=== PATIENT | male | born 1975 | race Hispanic/Latino ===

== ENCOUNTER 2019-10-29 08:14 | Emergency (ER) | payer OTHER, SELFPAY ==
--- NOTE | 2019-10-29 08:20 | ED.LOWEXIN ---
HPI - Extremity Injury (Lower) General Chief Complaint: Back Pain/Injury Stated Complaint: Pain cyatic nerve Time Seen by Provider: 10/29/19 08:20 Source: patient and RN notes reviewed History of Present Illness HPI Narrative: Patient is a 44-year-old male who presents the urgent care with complaints of left-sided sciatica with pains from the left flank around to the left thigh. Patient states is been going on for months and he has been following up with his primary doctor. Patient states that he completed physical therapy this week and he has been limping with worsening pain for the last 2 weeks. Patient states he has been waiting on an MRI which is post to be scheduled the first of next month. Patient did call his doctor this morning for a Zoom confrontation and he states that nothing would have been done over [place] and therefore he came to our facility for treatment. Patient states that he was prescribed tramadol for the pain but has not taken any for the last 24 hours. Patient states he took ibuprofen prior to bedtime last night with minimal relief. Patient is using a makeshift cane to ambulate. No other acute complaints. Denies any injury to cause the sciatica pains. Patient aware of the plan of care. Related Data Home Medications Medication Instructions Recorded Confirmed lisinopril 10/29/19 metformin mg 10/29/19 tramadol mg 10/29/19 Allergies Allergy/AdvReac Type Severity Reaction Status Date / Time No Known Allergies Allergy Unverified 03/31/18 10:03 Review of Systems Review of Systems: Narrative: CONSTITUTIONAL: Denies fever, chills, or sweats. EYES: Denies visual changes, redness, or discharge. ENT: Denies rhinorrhea, congestion, sore throat, or otalgia. CARDIOVASCULAR: Denies chest pain, palpitations, or edema. RESPIRATORY: Denies cough or dyspnea. GASTROINTESTINAL: Denies abdominal pain, nausea, vomiting, or diarrhea. GENITOURINARY: Denies dysuria or hematuria. SKIN: Denies rash or itching. MUSCULOSKELETAL: Reports of left-sided low back, buttocks and radiation through the thigh pains NEUROLOGIC: Denies headache, numbness, or weakness. All other systems reviewed are negative, except as documented in HPI. PMFSH Comments At the time of my signature, I reviewed and agree with the nursing past medical, surgical, social, and family history. There is no relevant family history pertinent to the patient complaint. Exam Narrative: Exam Narrative: GENERAL: This is a well-nourished, well-developed patient, in no apparent distress. HEAD: normocephalic, atraumatic. EYES: PERRL. Sclera clear/white. Vision is grossly intact. EARS: External ears normal NOSE: External nose normal with no obvious nasal discharge, nares without redness, no rhinorrhea. THROAT: Mucous membranes moist NECK: Neck supple SKIN: warm, intact with no suspicious lesions or rash, good texture and turgor. NEURO: awake, alert, and oriented to person, place and time. There were no obvious focal neurologic abnormalities. EXTREMITIES: No clubbing, cyanosis, or edema. BACK: Left lumbar tenderness. Moderate to severe piriformis tenderness on the left. Positive left SLE Course Vital Signs Vital signs: Vital Signs Temperature 99.0 F 10/29/19 08:24 Pulse Rate 80 10/29/19 08:24 Respiratory Rate 20 10/29/19 08:24 Blood Pressure 147/95 H 10/29/19 08:24 Pulse Oximetry 94 10/29/19 08:24 Temperature 99.0 F 10/29/19 08:24 Pulse Rate 80 10/29/19 08:24 Respiratory Rate 20 10/29/19 08:24 Blood Pressure 147/95 H 10/29/19 08:24 Pulse Oximetry 94 10/29/19 08:24 Reviewed-patient is informed that they may have pre-hypertension or hypertension based on a blood pressure reading in the department. I recommend the patient call the primary care provider listed on their discharge instructions or a physician of their choice this week to arrange follow-up for further evaluation of possible pre-hypertension or hypertension. MDM -
[2019-10-29 08:24] VITALS: BP 147/95; PULSE 80; RESP 20; TEMP 37.2; O2SAT 94
== END 2019-10-29 09:05 | disposition home or self-care (01) ==
PROVIDERS: Emergency Provider Nurse Practitioner Family
DX: M54.32 Sciatica, left side (principal); I10 Essential (primary) hypertension; E11.9 Type 2 diabetes mellitus without complications
CPT/HCPCS: 99213; G0463

== ENCOUNTER 2022-06-27 00:53 | Day surgery (SDC) | payer BC, SELFPAY ==
--- NOTE | 2022-06-20 14:56 | PM.IMHP ---
H&P: HPI History of Present Illness Date/Time: 06/20/22 14:56 Chief Complaint: the patient is a 47-year-old male who sees Dr. Sosa regarding his right shoulder. The patient has a chronic ongoing history of pain localized to the right shoulder. This started with moving heavy gate since that time he has had pain and weakness that radiates into the upper arm he has trouble going about his daily activities he cannot do anything heavy repetitive he has limitation of his ability to go about his daily activities. Despite conservative measures including cortisone therapy and anti-inflammatories symptoms continue. An MRI scan was done which clearly shows a fairly significant rotator cuff tendon tear. 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 There was a full-thickness tear the anterior lateral supraspinatus tendon with a gap measuring 10 x 15 mm. There is mild tendinosis of the infraspinatus tendon and of the superior lateral subscapularis teres minor appears to be normal. At this point the patient is where the above findings and discuss further treatment options in detail with Dr. Sosa he would now like to proceed with surgical intervention. The patient MRI scan also shows probable absence of the long head of the biceps tendon which may be indicating a tear of the biceps tendon proximally also. Review of Systems Review of Systems: Ten point review of systems otherwise negative Meds Home Medications and Allergies Home Medications Medication Instructions Recorded Confirmed Type cyclobenzaprine 5 mg tablet 5 mg PO HS PRN muscle spasm #14 10/29/19 Rx tabs lisinopril 20 mg tablet 10/29/19 History metformin 500 mg tablet mg 10/29/19 History prednisone 10 mg tablet See Rx Instructions .Route 10/29/19 Rx .COMPLEX #30 tabs tramadol 50 mg tablet mg 10/29/19 History Allergies Allergy/AdvReac Type Severity Reaction Status Date / Time No Known Allergies Allergy Unverified 03/31/18 10:03 Exam Narrative: on exam the patient is noted be a well-developed well-nourished male in no acute distress alert oriented x3. Normal mood and affect. He has noted be 5 ft 6 in tall 195 lb BMI 31.5. Hearing and vision are intact. Respiratory is good no distress. Pulse regular rate and rhythm. Abdomen benign. Extremities showed the patient's right shoulder to be painful with manipulation and range of motion he has a positive impingement sign and pain with overhead motion strength testing reproduces his pain he has some mild giving way with resisted abduction and external rotation. He otherwise has full active and passive motion full painless neck motion shoulder joint is otherwise stable neurovascular is intact skin is intact central nervous system within normal limits. Assessment and Plan Assessment and plan (1) Rotator cuff tear, right: Code(s): M75.101 - Unspecified rotator cuff tear or rupture of right shoulder, not specified as traumatic Status: Acute Plan By MRI and exam the patient is noted to have impingement AC joint arthrosis and rotator cuff tendon tear the right shoulder. The patient has discussed risks benefits limitations and alternatives to surgery in great detail with Dr. Sosa he is now ready to proceed with right shoulder arthroscopy acromioplasty open distal clavicle excision and rotator cuff tendon repair proceed as indicated. The patient is scheduled to undergo surgery June 27, 2022 at [facility] with Dr. Sosa. The patient voiced understanding and agrees with above plan.
[2022-06-20 16:31] VITALS: BMI 28.4
--- NOTE | 2022-06-20 16:51 | PC.NURSE ---
Report to the Outpatient Waiting Room, entrance under the green pavilion located off [facility], at time 1000 on date 06/27/22. Planned Procedure Time: _1200. Time changes happen often and if your time is changed the preop area will call you the afternoon before. - You and your visitor will be asked to self-screen and do not enter if you have any COVID symptoms. - A mask is optional within the hospital at this time. Patients may have clear liquids (water, carbonated beverages, clear teas, apple juice) until 3 hours prior to surgery with a maximum of 20 ounces. - No food from midnight until time of surgery - Infants may have breast milk until 4 hours before surgery, formula 6 hours prior to surgery. - Children will be allowed to drink immediately following surgery. If applicable, please bring a bottle or sippy cup to assist with drinking. Juice, water, soda, and popsicles are readily available. For infants on formula, please bring formula the day of surgery. Pacifiers are allowed. Take the following medications with a SIP of water the morning of surgery: _fluoxetine, tramadol__ DO NOT STOP ANY OF YOUR OTHER PRESCRIPTION MEDICATIONS PRIOR TO SURGERY ?EXCEPT THE FOLLOWING Medications to discontinue per physician _vitamin b12__ Date to take last dose___06/24/22__ Please no make-up, nail greenlandic, hairspray, perfume, deodorant, or body powder the day of surgery. No jewelry (including any body piercings) or valuables the day of surgery, leave them at home. Please take a shower or bath the night before, or the morning of, surgery with an antibacterial soap. Wear comfortable, loose fitting clothing. Children are encouraged to wear pajamas. - Jewelry must be removed prior to entering the operating room. Rings and piercings that are not removed may be cut off. - The hospital will not accept responsibility for valuables. - Please leave all valuables, including medications, at home the day of surgery. If you are going home after surgery, a licensed dumpcart driver must drive you home. - NO public transportation without another adult if you receive anesthesia. - We recommend that an adult stay with you for 24 hours following discharge. - We also recommend that you do not drive, make important decision, drink alcoholic beverages, or take any drugs that were not prescribed by your health care provider for at least 24 hours after your discharge time. For Pediatric surgeries, we recommend two adults accompany the child home. Follow any additional instructions given to you from your surgeon. If you or anyone in your household have experienced Covid symptoms in the past week, please notify your surgeon or the nurse liaison at the phone number below for possible testing. Telephone instructions given to Yony Cohen and asked if any additional questions and then verbalized understanding. Patient advised to call surgeon office or pre surgery nurse liaison [phone] if any additional questions.
[2022-06-27] VITALS (9 sets, daily range): BP systolic 114–141; BP diastolic 55–91; PULSE 58–85; RESP 12–20; TEMP 36.8–36.9; O2SAT 93–100
--- NOTE | 2022-06-27 08:54 | P.PNAN_ITS ---
Anes - Initial Pre Proc Eval Procedure: Operation Date: 06/27/22 12:00 Proposed Procedures p Right Shoulder Arthroscopy, Acromioplasty, Open Distal Clavicle Excision, Rotator Cuff Repair, Proceed As Indicated - Cassius Sosa MD Date/Time: 06/27/22 08:54 Surgeon: Cassius Sosa MD Pre Op Diagnosis: right shoulder rotator cuff tear Patient Data Age: 47 Gender: M Height: 1.68 m Weight: 80 kg Allergies Allergy/AdvReac Type Severity Reaction Status Date / Time No Known Allergies Allergy Unverified 06/27/22 09:56 Home Medications Medication Instructions Recorded Confirmed Type tramadol 50 mg tablet 50 mg PO DAILY PRN Pain 10/29/19 06/27/22 History cyanocobalamin (vitamin B-12) 500 500 mcg PO DAILY 06/20/22 06/27/22 History mcg tablet fluoxetine 20 mg capsule 20 mg PO DAILY 06/20/22 06/27/22 History Patient hx anesthesia problems: none Family hx anesthesia problems: none Results Review: All pre-operative results and documents have been reviewed as part of the pre- operative evaluation. [facility] [place] Past Medical History Medical History (Updated 06/27/22 @ 09:01 by Myron Hanna MD) Overweight (BMI 25.0-29.9) Rotator cuff tear, right Social History Social History Smoking status: Never smoker Alcohol intake: current Substance use: never Living arrangements: with family Spiritual care concerns: No Anes - Eval Final PreProcedure Day of Procedure 06/27/22 08:54 Patient weight: overweight Heart: regular rate and rhythm Lungs: clear to auscultation and normal air movement Airway: Mallampati scale class II Neurological: alert and oriented Last oral intake: >/= 8 hours ASA classification: II Emergent: no Anesthetic plan: proceed Anesthesia type and monitoring: general ETT Results Review: All pre-operative results and documents have been reviewed as part of the pre- operative evaluation. Informed Consent: The patient's anesthetic plan and its attendant risks and benefits were discussed with the patient/family/POA. Questions were solicited and answers provided to the satisfaction of the patient/family/POA.
--- NOTE | 2022-06-27 09:02 | WPDANESPNB ---
Anes - Peripheral Nerve Block Date/Time: 06/27/22 09:02 I have discussed with the patient/family/POA the placement of a peripheral nerve block for post-operative pain management, including associated risks, benefits, complications, and side effects. Alternative methods of post-operative analgesia were detailed. Questions were solicited and answers provided to the satisfaction of the patient/family/POA. Time-Out: A pre-procedural Time-Out was completed immediately before starting the procedure and confirmed: Patient Identification, Site, Procedure, Patient Position and the Availability of Requisite Equipment. Clinical Indications: Acute post-operative pain management requested by the operative surgeon. Nerve Block Insertion Note Anes-nerve block: supraclavicular right Patient position: supine Skin prep: chlorhexidine Needle: 22 gauge, stimulating, insulated echogenic needle. Needle length: 80 mm Technique: ultrasound (in plane) Injectate: bupivacaine 0.25% with epi 5 mcg/ml (20cc) Observations: tolerated well Complications: none Procedure start time:: 1155 Procedure end time:: 1200
[2022-06-27] MEDS: ACETAMINOPHEN 500 MG TABLET 1000 MG PO (10:48)
[2022-06-27] MEDS: KETOROLAC 15 MG/ML VIAL (*BKC) IV PUSH (10:52)
--- NOTE | 2022-06-27 11:49 | WPDHPUPDATE1 ---
History and Physical Update Update Date/Time: 06/27/22 11:49 History and Physical has been reviewed, including an updated exam of the patient. There are NO changes in the patient's condition. Risks, benefits, and alternatives have been discussed and questions answered. Patient agrees to proceed with procedure.
[2022-06-27] MEDS: ceFAZolin 2 GM/D5W 50 ML 2 GM/50 ML BAG IVPB (12:31)
[2022-06-27] MEDS: LIDO 1%/EPINEPHRINE 1:100,000 20 ML VIAL 10 ML INFILTRATE (12:31)
--- NOTE | 2022-06-27 13:14 | P.OP_ITS ---
Procedure Note - Detailed Date of Procedure 06/27/22 Pre-op Diagnosis right shoulder rotator cuff tear Post-op Diagnosis Same Procedure Performed Rotator cuff repair, distal clavicle excision Surgeon Cassius Sosa MD Top Inventory Control Executive Reji Silva Anesthesia General Description of Procedure Patient brought to the operative 8. A general anesthetic was administered. He was placed in the beach chair position the right shoulder exposed.? After sterile prep and drape standard posterior and lateral portals were used for arthroscopy. The joint itself looked reasonably good the biceps tendon was intact.? He had a large tear of the rotator cuff area in the supraspinatus tear region. This was gently debrided.? The biceps tendon was completely torn. The subacromial space had an intense bursa, this was debrided with a shaver and acromioplasty performed arthroscopically.? He was quite tight initially. I then proceeded to open the shoulder. A longitudinal incision made from the AC joint distalward over the shoulder.? Dissection carried down to the fascia. The fascia overlying the acromioclavicular joint was split. The AC joint found and a distal clavicle excision performed removing 3 to 4 millimeters of bone.? The edges beveled.? The deltoid was then split from the tip of the acromion. The remainder of the bursa was debrided.? The rotator cuff was torn in the supraspinatous area. The tear was nickel to quarter sized. This was deberided and repaired to bone using #2 Ethibond suture.? At this point the deltoid was repaired to itself,the acromion and the trapezius #2 Ethibond. The skin was closed with 2-0 Vicryl and breanne.? Sterile dressing applied patient tolerated well left the operating room satisfactory condition. Estimated Blood Loss 50 Drains No Packing No Pathology None sent Complications No immediate complications Condition Stable Disposition PACU
[2022-06-27] MEDS: LACTATED RINGERS 1,000 ML 30 ML IV CONT ×2 (13:35)
--- NOTE | 2022-06-27 13:44 | P.OPB_ITS ---
Procedure Note - Brief Procedure Note - Brief Date of procedure: 06/27/22 Preop diagnosis- right shoulder rotator cuff tear, impingement syndrome, AC joint arthrosis proximal biceps tendon tear Postop diagnosis same status post right shoulder arthroscopy acromioplasty debridement labrum open distal clavicle excision rotator cuff tendon repair Procedure performed: Right shoulder arthroscopy acromioplasty debridement labrum and proximal biceps tendon tear, open distal clavicle excision and rotator cuff tendon repair Surgeon: Surgeon-Cassius Sosa MD medical staff assistant-Reji Silva PA-C Description of procedure: Patient was taken the operating room on June 27, 2022 I entered the room at 12:15 p.m.. At that point I assisted with positioning the patient on the beach chair on the operating table followed by a sterile prep and drape. Once Dr. Sosa in the room he commence with the above surgical procedure, throughout the procedure I assisted with wound retraction positioning of the arm and cauterization and suction for hemostasis. Once the procedure was complete I then irrigated the wound major hemostasis was obtained and then began with closure of the subcutaneous and superficial skin layers. I started with 2-0 Vicryl followed by skin breanne. I then applied a sterile dressing with Xeroform gauze 4 x 4 gauze and tape. The patient was then placed in a shoulder immobilizer and was awakened from anesthesia. Then assisted with transfer the patient from the operating table to the stretcher for transport to recovery room. The patient was in good condition total blood loss was approximately 50 cc. I exited the room at 1:30 p.m..
[2022-06-27] MEDS: fentaNYL CITRATE INJ (*CRX) 100 MCG/2 ML VIAL 25 MCG IV PUSH ×2 (14:17→14:19)
[2022-06-27] MEDS: oxyCODONE HCL (*CRX) 5 MG TAB IR PO (14:46)
== END 2022-06-27 15:35 | disposition home or self-care (01) ==
PROVIDERS: Visit Provider Orthopaedic Surgery
PROC: (CPT 29805; principal; 2022-06-27 12:00)
DX: S46.011A Strain of muscle(s) and tendon(s) of the rotator cuff of right shoulder, initial encounter (principal); X50.0XXA Overexertion from strenuous movement or load, initial encounter; G89.18 Other acute postprocedural pain
CPT/HCPCS: 23410; 23120; 64415; A9270; J0330; J0690; J1100; J1885; J2250; J2370; J2405; J2704; J3010; J7120

== ENCOUNTER 2022-11-30 09:41 | Emergency (ER) | payer BC, SELFPAY ==
--- NOTE | 2022-11-30 10:21 | PC.NURSE ---
following registration pt stated he decided not to be seen at this time because he had to pickup driver his daughter, reported he would be back later.
== END 2022-11-30 10:00 | disposition left against medical advice (07) ==
LOC: EXPBETH 09:45
PROVIDERS: Emergency Provider Nurse Practitioner
DX: Z53.21 Procedure and treatment not carried out due to patient leaving prior to being seen by health care provider (principal)
CPT/HCPCS: 99199

== ENCOUNTER 2023-01-02 16:22 | Emergency (ER) | payer BC, SELFPAY ==
--- NOTE | ~2023-01-02 | XR_ITS ---
EXAMINATION: XR foot RT min 3V DATE: 01/02/2023 17:19 INDICATION: Intermittent swelling at the right foot TECHNIQUE: Dorsoplantar, two oblique and lateral views of the right foot were obtained. COMPARISON: 03/31/2018 FINDINGS: Bone alignment is normal. No fractures. Interval progression of now moderate osteoarthritis at the fi rst metatarsophalangeal joint. Additional mild osteoarthritis at the calcaneocuboid and a few tarsome tatarsal and interphalangeal joints. Small plantar calcaneal spur and minimal dystrophic calcific les ion along the plantar aponeurosis. Mild soft tissue swelling about the first metatarsophalangeal join t. IMPRESSION: 1. Polyarticular osteoarthritis with resection of now moderate osteoarthritis at the first metatarsop halangeal joint. Reviewed, dictated and finalized at location A. IMPRESSION: 1. Polyarticular osteoarthritis with resection of now moderate osteoarthritis a t the first metatarsophalangeal joint.
[2023-01-02 16:25] VITALS: BP 150/104; PULSE 66; RESP 18; TEMP 36.7; O2SAT 100
[2023-01-02 16:32] VITALS: BP 150/104; PULSE 66; RESP 18; TEMP 36.7; O2SAT 100
--- NOTE | 2023-01-02 17:33 | ED.EXTPRO ---
HPI - Extremity Problem General Chief complaint: Extremity Problem,Nontraumatic Stated complaint: Right Foot Swelling/Toe Pain Time Seen by Provider: 01/02/23 17:00 Source: patient, RN notes reviewed and old records reviewed Mode of arrival: ambulatory Limitations: no limitations History of Present Illness HPI Narrative: 47 year old male who presents to [facility] care with complaints of pain to his right great toe and also to his right foot for about a month now which swells and he has intermittent pain also. Patient reports that he has some swelling and pain and it comes and goes, denies any injury to his foot, wonders if gout. Patient requesting steroid shot for his discomfort. Patient has tramadol at home for any pain and he has been taking Ibuprofen for his right foot and great toe pain. MD Complaint: extremity pain and other (right great toe pain and right foot) Onset (ago): month(s) (1) Pain Consistency: intermittent Location: lower extremity (right foot dorsal medial aspect) and toe (right great toe) Severity scale (1-10): 10 Quality: aching Exacerbating factors: range of motion, weight bearing and walking Related Data Home Medications Medication Instructions Recorded Confirmed tramadol 50 mg tablet 50 mg PO DAILY PRN Pain 10/29/19 01/02/23 fluoxetine 20 mg capsule 20 mg PO DAILY 06/20/22 01/02/23 sertraline 100 mg tablet 100 mg PO DAILY 01/02/23 01/02/23 sertraline 25 mg tablet 25 mg PO DAILY 01/02/23 01/02/23 Allergies Allergy/AdvReac Type Severity Reaction Status Date / Time No Known Allergies Allergy Unverified 11/30/22 10:02 Review of Systems Review of Systems: CONSTITUTIONAL: Denies fever, chills, or sweats. EYES: Denies visual changes, redness, or discharge. ENT: Denies rhinorrhea, congestion, sore throat, or otalgia. CARDIOVASCULAR: Denies chest pain, palpitations, or edema. RESPIRATORY: Denies cough or dyspnea. GASTROINTESTINAL: Denies abdominal pain, nausea, vomiting, or diarrhea. GENITOURINARY: Denies dysuria or hematuria. SKIN: Denies rash or itching. MUSCULOSKELETAL: reports pain to his right great toe and into medial foot, joint pain, or myalgia. NEUROLOGIC: Denies headache, numbness, or weakness. PSYCHIATRIC: Denies anxiety or depression. All systems reviewed & are unremarkable except as noted in HPI and below PMFSH Past Medical History Medical History (Updated 01/05/23 @ 15:02 by Sheba Quintero NP) Anxiety Overweight (BMI 25.0-29.9) Rotator cuff tear, right Social History Social History Smoking status: Never smoker Alcohol intake: current Substance use: never Living arrangements: with family Spiritual care concerns: No Comments At time of signature, agree with nursing past medical, surgical, social and family history. There is no relevant family history pertinent to the presenting complaint Exam Narrative: GENERAL: Well-appearing, well-nourished, and in no acute distress. HEAD: Normocephalic, atraumatic. EYES: PERRLA and EOMI. ENT: Nares clear, no rhinorrhea or epistaxis. Mucous membranes moist. NECK: Supple.no lymphadenopathy CHEST: Clear to auscultation. No respiratory distress. HEART: Regular rate and rhythm. No murmur heard. Normal peripheral pulses. ABDOMEN: Soft, nontender, nondistended, normal active bowel sounds. EXTREMITIES: Normal range of motion.mild edema to right great toe and medial right foot, no acute redness noted, pain increases with ambulation and ROM of foot. SKIN: Warm, dry, no rash. NEURO: No focal deficits. Alert and oriented x3. Course Course Emergency Course: Patient is aware of diagnosis, understands and agrees to treatment plan.? Anticipatory guidance given.? Patient agrees to follow-up as directed and is aware of reasons to seek care at the emergency department. Portions of this record may have been created with voice recognition software Level of Care: [facility] Care Visit Vital
[2023-01-02] MEDS: methylPREDNISolone ACETATE 80 MG/ML VIAL IM (17:49)
== END 2023-01-02 18:01 | disposition home or self-care (01) ==
PROVIDERS: Emergency Provider Registered Nurse
DX: M79.674 Pain in right toe(s) (principal); M79.671 Pain in right foot; F41.9 Anxiety disorder, unspecified
CPT/HCPCS: 73630; 96372; 99213; G0463; J1040